=== PATIENT | male | born 1955 | race African-American/Black ===

== ENCOUNTER 2019-09-25 17:31 | Emergency (ER) | payer BC, SELFPAY ==
[2019-09-25 17:42] VITALS: BP 147/73; PULSE 73; RESP 20; TEMP 37.6; O2SAT 99
--- NOTE | 2019-09-25 17:46 | ED.MALEGU ---
HPI - Male Genitourinary General Chief complaint: Urogenital-Male Stated complaint: possibly UTI Time Seen by Provider: 09/25/19 17:46 Source: patient Mode of arrival: ambulatory History of Present Illness HPI Narrative: Patient presents with low back pain urinary frequency and urgency. Patient states he thinks that he has a urinary tract infection. Patient states he had a UTI about 5 years ago with the same symptoms. Patient states he had a fever earlier this morning but it was resolved with ibuprofen. Patient denies any flank pain no gross hematuria. Patient denies any renal problems.patient denies any exposure to covid 19. Patient denies any upper respiratory symptoms. Related Data Home Medications Medication Instructions Recorded Confirmed aspirin 81 mg tablet,delayed 81 mg PO DAILY 08/25/19 08/25/19 release Allergies Allergy/AdvReac Type Severity Reaction Status Date / Time No Known Allergies Allergy Verified 09/25/19 17:57 Review of Systems Review of Systems: Narrative: CONSTITUTIONAL: Denies fever, chills, or sweats. EYES: Denies visual changes, redness, or discharge. ENT: Denies rhinorrhea, congestion, sore throat, or otalgia. CARDIOVASCULAR: Denies chest pain, palpitations, or edema. RESPIRATORY: Denies cough or dyspnea. GASTROINTESTINAL: Denies abdominal pain, nausea, vomiting, or diarrhea. GENITOURINARY: Denies hematuria. Patient reports low back pain, urinary urgency. SKIN: Denies rash or itching. MUSCULOSKELETAL: Denies back pain, joint pain, or myalgia. NEUROLOGIC: Denies headache, numbness, or weakness. PSYCHIATRIC: Denies anxiety or depression. All systems reviewed & are unremarkable except as noted in HPI and below [facility] Past Medical History Medical History BPH w/o urinary obs/LUTS Dyslipidemia Type 2 diabetes mellitus without complication, without long-term current use of insulin Social History Social History Smoking status: Never smoker Second hand tobacco smoke exposure: No Alcohol intake: never Substance use: never Substance use type: does not use Gender identity (if verbalized by the patient): Male Comments At time of signature, agree with nursing past medical, surgical, social and family history. There is no relevant family history pertinent to the presenting complaint Exam Narrative: Exam Narrative: GENERAL: Well-appearing, well-nourished, and in no acute distress. HEAD: Normocephalic, atraumatic. EYES: PERRLA and EOMI. ENT: Nares clear, no rhinorrhea or epistaxis. Mucous membranes moist. NECK: Supple. CHEST: Clear to auscultation. No respiratory distress. HEART: Regular rate and rhythm. No murmur heard. Normal peripheral pulses. ABDOMEN: Soft, nontender, nondistended, normal active bowel sounds. EXTREMITIES: Normal range of motion. No edema. SKIN: Warm, dry, no rash. NEURO: No focal deficits. Alert and oriented x3. Maki Coma Scale Eye Opening: Spontaneous 4 [place] Coma Scale Motor: Obeys Commands 6 [place] Coma Scale Verbal: Oriented 5 Maki Coma Scale Total 15 Course Vital Signs Vital signs: Vital Signs Temperature 37.6 C 09/25/19 17:42 Pulse Rate 73 09/25/19 17:42 Respiratory Rate 20 09/25/19 17:42 Blood Pressure 147/73 H 09/25/19 17:42 Pulse Oximetry 99 09/25/19 17:42 Temperature 37.6 C 09/25/19 17:42 Pulse Rate 73 09/25/19 17:42 Respiratory Rate 20 09/25/19 17:42 Blood Pressure 147/73 H 09/25/19 17:42 Pulse Oximetry 99 09/25/19 17:42 Addressed elevated BP today. Today's blood pressure higher than recommended range. Discussed importance of follow -up with PCP and possible oil heaterman effects/cardiovascular events related to HTN. Currently patient denies headache, dizziness, vision changes, CP or shortness of breath. Critical dx considered and discussed with pt. Educated patient on red flag s/s and to go t
== END 2019-09-25 18:05 | disposition home or self-care (01) ==
PROVIDERS: Emergency Provider Nurse Practitioner Family; PCP Family Medicine
DX: N39.0 Urinary tract infection, site not specified (principal); N40.0 Benign prostatic hyperplasia without lower urinary tract symptoms; E78.5 Hyperlipidemia, unspecified; E11.9 Type 2 diabetes mellitus without complications; Z79.4 Long term (current) use of insulin
CPT/HCPCS: 81003; 87086; 87088; 99213; G0463

== ENCOUNTER 2021-05-14 08:46 | Emergency (ER) | payer OTHER, SELFPAY ==
[2021-05-14 08:55] VITALS: BP 166/95; PULSE 100; RESP 16; TEMP 36.9; O2SAT 100
[2021-05-14 09:39] LABS: Glucose Point of Care 124 mg/dl (65-105)
--- NOTE | 2021-05-14 10:17 | ED.GENADULT ---
HPI - General Adult General Chief complaint: Weakness Stated complaint: Weakness Time Seen by Provider: 05/14/21 09:55 Source: patient and RN notes reviewed Mode of arrival: ambulatory Limitations: no limitations History of Present Illness HPI narrative: Patient presents today complaining of an episode of dizziness and a fall in his bathroom at 530 this morning. States he got up to use the restroom and lost his balance. Reports that he sat for 15 minutes on the bathroom floor until he started feeling better then was able to get up and go back to bed. Denies hitting his head or any loss of consciousness. States he did check his blood pressure prior to going back to bed. One reading was 88/35 and the next reading was 96/47 a few minutes later. Patient states he has been on lisinopril and amlodipine for hypertension, but contrary to the way it has been prescribed, he has not been taking these medications together. Since 05/02/2021 he has only been taking the amlodipine. He does check his blood pressure frequently at home with a home cuff and states his blood pressures have never been as low as they were this morning. Patient does have type 2 diabetes. He has not checked his blood sugar yet today. Upon arrival it was 124. He is no longer feeling dizzy or lightheaded or weak in any way. MD complaint: Fall, dizziness Related Data Home Medications Medication Instructions Recorded Confirmed dutasteride 0.5 mg capsule 0.5 mg PO DAILY 05/18/20 05/14/21 terbinafine HCl 250 mg tablet 250 mg PO DAILY 01/03/21 05/14/21 aspirin [Aspirin Low Dose] 81 mg PO DAILY 05/14/21 05/14/21 sennosides-docusate sodium 1 tab-cap PO BID PRN 05/14/21 05/14/21 [Senna-S] Allergies Allergy/AdvReac Type Severity Reaction Status Date / Time No Known Allergies Allergy Verified 05/14/21 09:28 Review of Systems Review of Systems: CONSTITUTIONAL: Denies body aches, fever, chills, or sweats. EYES: Denies visual changes, redness, or discharge. ENT: Denies rhinorrhea, congestion, sore throat, or otalgia. CARDIOVASCULAR: Denies chest pain, palpitations, or edema. RESPIRATORY: Denies cough or dyspnea. GASTROINTESTINAL: Denies abdominal pain, nausea, vomiting, or diarrhea. GENITOURINARY: Denies dysuria or hematuria. SKIN: Denies rash, itching, or wounds. MUSCULOSKELETAL: Denies back pain, joint pain, or myalgia. NEUROLOGIC: Denies headache, numbness, tingling, or weakness.+ Dizziness, lightheadedness, fall PSYCH: Denies depression or anxiety. [facility] Past Medical History Medical History BPH w/o urinary obs/LUTS Dyslipidemia Elevated PSA Essential (primary) hypertension Type 2 diabetes mellitus without complication, without long-term current use of insulin Vitamin D deficiency Surgical History Surgical History H/O colonoscopy (~2015) Social History Social History Second hand tobacco smoke exposure: No Alcohol intake: never Substance use: never Substance use type: does not use Additional living arrangements comments: Gender identity (if verbalized by the patient): Male Sexual Orientation (if Verbalized by the Patient): Straight or Heterosexual Comments At time of signature, I have reviewed and agree with nursing past medical, surgical, social and family history unless otherwise noted. Please see nursing chart for further information. There is no relevant family history pertinent to the presenting complaint Exam Narrative: GENERAL: Well-appearing, well-nourished, and in no acute distress. HEAD: Normocephalic, atraumatic. EYES: EOMI. No redness or drainage. Conjunctivae normal. ENT: Mucous membranes pink and moist. NECK: Normal AROM. CHEST: No respiratory distress. Clear to auscultation. HEART: Regular rate and rhythm. No murmur appreciated
== END 2021-05-14 10:30 | disposition home or self-care (01) ==
PROVIDERS: Emergency Provider Nurse Practitioner; PCP Family Medicine
DX: I95.1 Orthostatic hypotension (principal); N40.0 Benign prostatic hyperplasia without lower urinary tract symptoms; E78.5 Hyperlipidemia, unspecified; I10 Essential (primary) hypertension; E11.9 Type 2 diabetes mellitus without complications; E55.9 Vitamin D deficiency, unspecified
CPT/HCPCS: 81003; 82948; 99212; G0463

== ENCOUNTER 2023-05-06 11:34 | Outpatient (CLI) | payer OTHER, SELFPAY ==
[2023-05-06 18:36] LABS: Alanine Aminotransferase 14 U/L (6-50); Albumin Level 4.2 g/dL (3.5-5.1); Alkaline Phosphatase 95 U/L (38-126); Anion Gap 8 mmol/L (8-16); Aspartate Amino Transferase 24 U/L (17-59); Bilirubin,Total 0.5 mg/dL (0.2-1.3); Blood Urea Nitrogen 21 mg/dL (9-20); Calcium 9.5 mg/dL (8.4-10.2); Carbon Dioxide 30 mmol/L (22-30); Chloride 101 mmol/L (98-107); Estimated Glomerular Filt Rate > 60; Glucose 225 mg/dL (65-110); Potassium 4.5 mmol/L (3.4-5.0); Sodium 139 mmol/L (137-145)
[2023-05-06 23:45] LABS: Hemoglobin A1C 9.7 % (<5.7)
== END 2023-05-06 11:35 | disposition home or self-care (01) ==
PROVIDERS: PCP Family Medicine; Visit Provider Family Medicine
DX: E11.9 Type 2 diabetes mellitus without complications (principal); I10 Essential (primary) hypertension; E55.9 Vitamin D deficiency, unspecified
CPT/HCPCS: 36415; 80053; 82306; 83036

== ENCOUNTER 2023-12-04 18:50 | Emergency (ER) | payer OTHER, SELFPAY ==
--- NOTE | 2023-12-04 18:57 | ECG_ITS ---
Test Date: 2023-12-04 19:03:11 Measurements Intervals [place] Rate: 56 P: 53 IN: 134 QRS: 56 QRSD: 86 T: 64 QT: 397 QTc: 385 Interpretive Statements SINUS RHYTHM VOLTAGE CRITERIA FOR LVH [MEETS CRITERIA IN ONE OF: R(aVL), S(V1), R(V5), R(V5/V6)+S(V1)] ABNORMAL ECG No previous ECG available for comparison Electronically Signed On 12-05-2023 15:07:32 CDT by Rosas Lagos M.D.
--- NOTE | 2023-12-04 18:57 | ED.CHESTPAIN ---
HPI - Chest Pain General Chief Complaint: Chest Pain Stated Complaint: Chest Pain/Shortness of Breath Time Seen by Provider: 12/04/23 19:06 Mode of arrival: ambulatory Limitations: no limitations History of Present Illness HPI narrative: 68-year-old male with history of diabetes presents with concern for chest pressure. He reports symptoms started this morning and worsened this evening. He denies chest pain. He reports an occasional feeling of not being able to get a full breath but otherwise denies shortness of breath. He denies cough. He denies recent illness. He denies injury. He denies any exacerbating or relieving factors. complaint: chest pain Related Data Home Medications Medication Instructions Recorded Confirmed dutasteride 0.5 mg capsule 0.5 mg PO DAILY 05/18/20 12/04/23 terbinafine HCl 250 mg tablet 250 mg PO .every 2 weeks 09/23/23 12/04/23 Allergies Allergy/AdvReac Type Severity Reaction Status Date / Time No Known Allergies Allergy Verified 12/04/23 19:12 Review of Systems Review of Systems: CONSTITUTIONAL: Denies malaise, chills, sweats, or fever. ENT: Denies rhinorrhea, congestion, sinus pain, otalgia or sore throat. CARDIOVASCULAR: Denies chest pain, reports chest pressure. Denies palpitations or edema. RESPIRATORY: Denies cough or dyspnea. GASTROINTESTINAL: Denies abdominal pain, nausea, vomiting, SKIN: Denies rash or itching. MUSCULOSKELETAL: Denies myalgia. NEUROLOGIC: Denies numbness, weakness, or headache. PSYCHIATRIC: Reports anxiety All systems reviewed & are unremarkable except as noted in HPI and below [facility] Past Medical History Medical History BPH w/o urinary obs/LUTS Dyslipidemia Elevated PSA Essential (primary) hypertension Type 2 diabetes mellitus without complication, without long-term current use of insulin Vitamin D deficiency Surgical History Surgical History H/O colonoscopy (~2015) Social History Social History Smoking status: Never smoker Second hand tobacco smoke exposure: No Alcohol intake: never Substance use: never Substance use type: does not use Lack of Transportation: No Lack of Food: Never True Current Housing: I Have Housing Concerned About Future Housing: No Difficulty Paying Gas/Electric Bills: No Difficulty Paying for Meds: No Currently Unemployed: YES Education: Decline to Answer Difficulty w/ Childcare or Family Care: No Living arrangements: with family Additional living arrangements comments: Occupation/Education: occupation Gender identity (if verbalized by the patient): Male Sexual Orientation (if Verbalized by the Patient): Straight or Heterosexual Comments At time of signature, agree with nursing past medical, surgical, social and family history. There is no relevant family history pertinent to the presenting complaint Exam Narrative: GENERAL: Well-appearing, well-nourished, and in no acute distress. HEAD: Normocephalic, atraumatic. EYES: PERRLA, sclera clear, and EOMI. No nystagmus. ENT: Nares clear. Mucous membranes moist. NECK: Supple. No jugular venous distension. Carotids were easily palpable bilaterally. CHEST: No respiratory distress. Clear to auscultation. No bony deformities, no asymmetry. Speaks in full sentences. HEART: Regular rate and rhythm. No murmur heard. Normal peripheral pulses. ABDOMEN: Soft, nontender, nondistended, normal active bowel sounds, no palpable masses. EXTREMITIES: Normal range of motion. No edema. Normal strength and sensation. SKIN: Warm, dry, no visible rash. NEURO: Alert and oriented x3. No focal deficits. Cranial nerves II through XII grossly intact PSYCH: Normal mood and affect Course Course Emergency Course: Patient is aware of diagnosis, understands and agrees to treatment pl
[2023-12-04 19:00] VITALS: BP 159/80; PULSE 102; RESP 20; TEMP 36.5; O2SAT 100
[2023-12-04] MEDS: MAG HYDROX/AL HYDROX/SIMETH 30 ML UDC 15 ML PO (19:20)
[2023-12-04] MEDS: LIDOCAINE HCL 2% VISC SOLN 15 ML UDC PO (19:21)
== END 2023-12-04 19:45 | disposition short-term general hospital (02) ==
PROVIDERS: Emergency Provider Nurse Practitioner
DX: R07.9 Chest pain, unspecified (principal); N40.0 Benign prostatic hyperplasia without lower urinary tract symptoms; E78.5 Hyperlipidemia, unspecified; I10 Essential (primary) hypertension; E11.9 Type 2 diabetes mellitus without complications; Z79.84 Long term (current) use of oral hypoglycemic drugs; E55.9 Vitamin D deficiency, unspecified
CPT/HCPCS: 93005; 99213; A9270; G0463